=== PATIENT | female | born 1970 | race Caucasian/White ===

== ENCOUNTER → 2018-09-15 | Outpatient (CLI) | payer BC ==
[2015-01-10 10:56] VITALS: BP 121/61
[~2018-09-15] MED LIST: ALPR0.25 PO; AMOX1TAB61 PO; ASPI-482 PO; CYCL-331 PO; HYDR-2155 PO; PROP20TA PO
--- NOTE | 2018-09-16 16:04 | RAD ---
DATE: 09/15/2018 EXAM: DIGITAL SCREEN BILAT W/CAD HISTORY: Routine screening COMPARISON: 12/24/2013 This study was interpreted with the benefit of Computerized Aided Detection (CAD). Breast Density: SCATTERED The breast parenchyma shows scattered fibroglandular densities. Breast parenchyma level B. FINDINGS: No new or enlarging breast densities are seen. Minimal benign type calcifications present. No suspicious microcalcifications have developed. IMPRESSION: There is no mammographic evidence of malignancy in either breast. BI-RADS CATEGORY: 2 BENIGN FINDING(S) RECOMMENDED FOLLOW-UP: 12M 12 MONTH FOLLOW-UP PQRS compliance statement: Patient information was entered into a reminder system with a target due date for the next mammogram. Mammography is a sensitive method for finding small breast cancers, but it does not detect them all and is not a substitute for careful clinical examination. A negative mammogram does not negate a clinically suspicious finding and should not result in delay in biopsying a clinically suspicious abnormality. "Our facility is accredited by the [employer] Mammography Program."
== END | disposition home or self-care (01) ==
LOC: MAMMO 15:26
PROVIDERS: ATTEND Physician Assistant
DX: Z12.31 Encounter for screening mammogram for malignant neoplasm of breast (principal)
CPT/HCPCS: 77067

== ENCOUNTER 2018-09-27 10:24 | Observation (INO) | payer BC ==
[~2018-09-27] VITALS: Ht 167.6 cm; Wt 113.4 kg
[2018-09-27] MEDS ORDERED: IOHEXOL 240 MG/ML 50ML VIAL. PO ONE (11:30)
[2018-09-27] MEDS ORDERED: IOHEXOL 300 MG/ML 50 ML VIAL. IV ONE ×2 (11:30)
[2018-09-27 11:33] LABS: BASO % 1 % (0-3); EOS # 0.1 x10^3/uL (0.0-0.7); EOS % 1 % (0-3); HEMATOCRIT 39.6 % (36.0-47.0); HEMOGLOBIN 13.1 g/dL (12.0-15.5); LYMPH # 2.3 x10^3/uL (1.0-4.8); LYMPH % 44 % (24-48); MEAN CORPUSCULAR HEMOGLOBIN 29 pg (25-35); MEAN CORPUSCULAR HGB CONC 33 g/dL (31-37); MEAN CORPUSCULAR VOLUME 87 fL (79-100); MONO # 0.4 x10^3/uL (0.0-1.1); MONO % 8 % (0-9); NEUT # 2.4 x10^3uL (1.8-7.7); NEUT % 46 % (31-73); PLATELET COUNT 220 x10^3/uL (140-400); RED BLOOD COUNT 4.58 x10^6/uL (3.50-5.40); RED CELL DISTRIBUTION WIDTH 15.1 % (11.5-14.5); WHITE BLOOD COUNT 5.3 x10^3/uL (4.0-11.0)
[2018-09-27 11:49] VITALS: BP 143/76
[2018-09-27 11:58] LABS: ALBUMIN 3.8 g/dL (3.4-5.0); ALBUMIN/GLOBULIN RATIO 1.1 (1.0-1.7); CALCIUM 8.9 mg/dL (8.5-10.1); GFR 59.7; POTASSIUM 3.5 mmol/L (3.5-5.1); TOTAL BILIRUBIN 0.5 mg/dL (0.2-1.0); TOTAL PROTEIN 7.4 g/dL (6.4-8.2)
[2018-09-27] MEDS ORDERED: CYAN10005 PO (12:00)
[2018-09-27] MEDS ORDERED: MONT10TA9 PO (12:00)
[2018-09-27] MEDS ORDERED: CALC-157 PO (12:00)
[2018-09-27] MEDS ORDERED: APIX2.5T PO (12:00)
[2018-09-27] MEDS ORDERED: PROP20TA PO (12:00)
[2018-09-27] MEDS ORDERED: CHLO250T4 PO (12:00)
[2018-09-27] MEDS ORDERED: RIZA10TA PO (12:00)
[2018-09-27] MEDS ORDERED: BIOT800T PO (12:00)
[2018-09-27] MEDS ORDERED: CETI10TA22 PO (12:00)
[2018-09-27] MEDS ORDERED: PANT40TA3 PO (12:00)
[2018-09-27] MEDS ORDERED: NITR0.4T22 SL (12:00)
[2018-09-27] MEDS ORDERED: MULT1TAB52 PO (12:00)
[2018-09-27] MEDS ORDERED: OMEP40CA5 PO (12:00)
[2018-09-27] MEDS ORDERED: BUTALB/APAP/CAFEIN 50/325/40MG TABLET. PO PRN (12:15)
[2018-09-27] MEDS ORDERED: NITROGLYCERIN SUBLINGUAL 0.4 MG BOTTLE OF 25. SL PRN (12:15)
--- NOTE | 2018-09-27 12:16 | EKG ---
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
[2018-09-27 12:44] LABS: BACTERIA,URINE FEW /HPF (0-FEW); BILIRUBIN,URINE NEG (NEG); CLARITY,URINE HAZY; COLOR,URINE YELLOW; GLUCOSE,URINE NEG (NEG); NITRITE,URINE NEG (NEG); SQUAMOUS EPITHELIAL CELL,UR MOD /LPF; UROBILINOGEN,URINE 0.2 mg/dL (0.2 mg/dL); WBC,URINE OCC /HPF (0-4)
--- NOTE | 2018-09-27 13:16 | RAD ---
PQRS Compliance Statement: One or more of the following individualized dose reduction techniques were utilized for this examination: 1. Automated exposure control 2. Adjustment of the mA and/or kV according to patient size 3. Use of iterative reconstruction technique CT angiography chest and abdomen with contrast September 27, 2018 INDICATION: Chest and epigastric pain COMPARISON: None available TECHNIQUE: Multiple axial CT images of the chest and abdomen were obtained after the intravenous administration of 75 cc of Omnipaque 300. Coronal and sagittal reformats are provided. Maximum intensity projection images are provided. FINDINGS: The thyroid gland is normal in appearance. There are no pathologically enlarged axillary, mediastinal or hilar lymph nodes. Heart size is within normal limits. There is no pericardial effusion. Thoracic aorta is normal in course and caliber. There is adequate opacification of pulmonary arterial system. There are no filling defects are suggest acute or chronic pulmonary emboli. There are no suspicious solid noncalcified pulmonary nodules. There are no pleural effusions. No pulmonary vascular congestion or pneumothorax. Lungs are clear. No airspace consolidation. The liver, spleen, bilateral adrenal glands and pancreas are normal in appearance. Gallbladder is present without adjacent inflammation. Abdominal aorta is normal in caliber. Small and large bowel are normal in caliber. There is no evidence for bowel obstruction. There are no pericolonic inflammatory changes. A normal, nondilated appendix is visualized without adjacent inflammatory changes. Postoperative changes are identified from gastric bypass surgery. Kidneys enhance symmetrically. No suspicious renal mass is identified. There is no hydronephrosis or renal calculi. There is a right renal cyst measuring 3.3 cm. IMPRESSION: 1. No evidence for acute pulmonary embolism. 2. No CT evidence for acute abnormality in the abdomen. Electronically signed by: Blossom Carvajal MD (09/27/2018 1:12 PM) [facility]
[2018-09-27] MEDS ORDERED: SUMAtriptan SUCCINATE 50 MG TABLET PO PRN (13:30)
[2018-09-27 15:01] VITALS: BP 135/76
--- NOTE | 2018-09-27 15:17 | RAD ---
Ultrasound venous Doppler INDICATION:Left calf pain, hx of dvt< TECHNIQUE: Grayscale, color Doppler and spectral waveform ultrasound images of the bilateral lower extremities deep veins obtained. COMPARISON: None FINDINGS: The interrogated deep veins are compressible and demonstrate evidence of blood flow with normal respiratory variation and response to augmentation. IMPRESSION: No sonographic evidence of acute DVT of the bilateral lower extremity deep veins. Electronically signed by: Michoacano Marin DO (09/27/2018 3:13 PM) [facility]
[2018-09-27] MEDS ORDERED: PROPRANOLOL 20 MG TABLET. PO SCH (21:00)
[2018-09-27] MEDS ORDERED: APIXABAN 2.5 MG TABLET PO SCH (21:00)
[2018-09-28] MEDS ORDERED: PANTOPRAZOLE 40 MG TABLET. PO SCH ×2 (07:30)
[2018-09-28] MEDS ORDERED: CYANOCOBALAMIN (VITAMIN B-12) 1,000 MCG TABLET. PO SCH (09:00)
[2018-09-28] MEDS ORDERED: CALCIUM CARB/VIT D3 500/200 TABLET PO SCH (09:00)
[2018-09-28] MEDS ORDERED: NON FORMULARY ITEM (Biotin 1,000 MCG) PO SCH (09:00)
[2018-09-28] MEDS ORDERED: MULTIVITAMIN with MINERAL TABLET. PO SCH (09:00)
[2018-09-28] MEDS ORDERED: CETIRIZINE HCL 10 MG TABLET PO SCH (09:00)
[2018-09-28] MEDS ORDERED: MONTELUKAST 10 MG TABLET. PO SCH (09:00)
[2018-09-28] MEDS ORDERED: CHLOROTHIAZIDE 250 MG PO SCH (09:00)
--- NOTE | 2018-10-13 09:46 | DS ---
DATE OF DISCHARGE: 09/27/2018 HOSPITAL COURSE: A 48-year-old female admitted with chest pain. The patient was admitted. The patient was placed in the ICU. Cardiac enzymes were negative. The patient made good progress during the rest of her hospitalization. She demanded to be discharged. She was discharged home for followup with her diesel stationary engineer. While here, a CTA was performed and that was all within normal limits and lower extremity Dopplers done and that was also noted to be within normal limits. IMPRESSION: Chest pain, unknown etiology. DISCHARGE PLAN: See MRAD, decreased activity and return to clinic for followup and follow up with her diesel stationary engineer. FELIX MICHAUD MD DR: BOB/jaret JOB#: [id number] / [id number]
== END 2018-09-27 16:36 | disposition home or self-care (01) ==
LOC: ICU 10:37 → INTOOBSV 10:37
PROVIDERS: ADMIT Family Medicine; ATTEND Family Medicine
DX: R07.89 Other chest pain (principal); E78.1 Pure hyperglyceridemia; R06.02 Shortness of breath; J45.909 Unspecified asthma, uncomplicated; M79.7 Fibromyalgia; M51.36 Other intervertebral disc degeneration, lumbar region; I26.99 Other pulmonary embolism without acute cor pulmonale; I25.2 Old myocardial infarction; Z98.890 Other specified postprocedural states; Z87.891 Personal history of nicotine dependence; Z79.899 Other long term (current) drug therapy; Z88.2 Allergy status to sulfonamides; Z88.8 Allergy status to other drugs, medicaments and biological substances; Z23 Encounter for immunization
CPT/HCPCS: 36415; 71275; 74175; 80053; 81001; 82550; 83880; 84484; 85025; 85379; 87641; 90471; 90756; 93005; 93970; G0378; G0379; Q9966; Q9967; Q2035

== ENCOUNTER 2018-11-06 21:39 | Emergency (ER) | payer BC ==
[~2018-11-06] VITALS: Ht 167.6 cm; Wt 113.4 kg
[~2018-11-06 21:39] MED LIST changes: +APIX2.5T PO; +BIOT800T PO; +CALC-157 PO; +CETI10TA22 PO; +CHLO250T4 PO; +CYAN10005 PO; +MONT10TA9 PO; +MULT1TAB52 PO; +NITR0.4T22 SL; +OMEP40CA5 PO; +PANT40TA3 PO; +RIZA10TA PO
--- NOTE | 2018-11-06 21:41 | ED.ADGEN ---
Past History Past Medical History: Anxiety, Other Past Surgical History: Hysterectomy Alcohol Use: None Drug Use: None Adult General Chief Complaint Chief Complaint ".. I am not feeling right all... fatigued.. nauseated all day...my heart is beating fast... maybe a stomach bug or something... but I check my glucose... and it was high three times.. I..usually have low blood sugar..." HPI HPI Patient is a 48 year old female who presents with above hx and complaints tachycardia, fatigue, malaise, hyperglycemia. Pt. reports she has always been hypoglycemic in past, but today when she checks her glucose all the readings where high. . Pt. denies eating before glucose checks at home. Pt. did undergo go gastric bypass approximate 4 months ago. Blood sugars today were 324 , 289 and 300. Pt does have hx of DVT and chronically low potassiums. Patient denies any change in medications. Patient denies any history immunosuppression. 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 Pt. normally follows with Dr. Colon. Review of Systems Review of Systems Constitutional: Denies fever or chills [] Eyes: Denies change in visual acuity, redness, or eye pain [] HENT: Denies nasal congestion or sore throat [] Respiratory: Denies cough or shortness of breath [] Cardiovascular: No additional information not addressed in HPI [] GI: Denies abdominal pain, , vomiting, bloody stools or diarrhea [] Hx nausea : Denies dysuria or hematuria [] Musculoskeletal: Denies back pain or joint pain [] Integument: Denies rash or skin lesions [] Neurologic: Denies headache, focal weakness or sensory changes [] Endocrine: Denies polyuria or polydipsia [] All other systems were reviewed and found to be within normal limits, except as documented in this note. Family History Family History Noncontributory to presentation Current Medications Current Medications Current Medications Medications (Trade) Dose Ordered Sig/Gustavo Start Time Stop Time Status Last Admin Dose Admin Potassium Chloride (KCl Oral Soln) 20 meq STK-MED ONCE 11/06/18 23:46 11/06/18 23:48 DC Sodium Chloride 1,000 ml @ 1,000 mls/hr Q1H 11/06/18 21:57 11/06/18 22:56 DC 11/06/18 22:44 1,000 MLS/HR See nursing for home meds Allergies Allergies Allergies Coded Allergies Type Severity Reaction Last Updated Verified Sulfa (Sulfonamide Antibiotics) Allergy Intermediate 01/10/15 Yes gabapentin Allergy Unknown 01/10/15 No magnesium Allergy Unknown 01/10/15 No pregabalin Allergy Unknown 01/10/15 No Physical Exam Physical Exam Constitutional: Mild distress, non-toxic appearance. [] HENT: Normocephalic, atraumatic, bilateral external ears normal, oropharynx dry , no oral exudates, nose normal. [] Eyes: PERRLA, EOMI, conjunctiva normal, no discharge. [] Neck: Normal range of motion, no tenderness, supple, no stridor. [] Cardiovascular: Bradycardia Heart rate regular rhythm, no murmur [] Lungs & Thorax: Bilateral breath sounds clear to auscultation [] Abdomen: Bowel sounds normal, soft, no tenderness, no masses, no pulsatile masses. [Old surgery scars . Skin: Warm, dry, no erythema, no rash. [] Back: No tenderness, no CVA tenderness. [] Extremities: No tenderness, no cyanosis, no clubbing, ROM intact, no edema. [] Neurologic: Alert and oriented X 3, normal motor function, normal sensory function, no focal deficits noted. [] Psychologic: Affect anxious, judgement normal, mood normal. [] Current Patient Data Vital Signs Vital Signs Date Time Temp Pulse Resp B/P (MAP) Pulse Ox O2 Delivery O2 Flow Rate FiO2 11/06/18 21:39 97.0 67 18 97 Room Air Lab Results Laboratory Tests Test 11/06/18 21:59 11/06/18 22:15 11/06/18 22:35 11/06/18 23:49 Glucose (Fingerstick) 142 mg/dL (70-99) H 76 mg/dL (70-99) Urine Collection Type Unknown Urine Color Yellow Urine Clarity Clear Urine pH 5.5 Urine Specific [place] 1.020 Urine Protein Neg (NEG-TRACE) Urine Glucose (UA) 250 mg/dL (NEG) Urine Ketones (Stick) Trace mg/dL (NEG) Urine Blood Trace (NEG) Urine Nitrite Neg (NEG) Urine Bilirubin Neg (NEG) Urine Urobilinogen Dipstick 0.2 mg/dL (0.2 mg/dL) Urine Leukocyte Esterase Neg (NEG) Urine RBC 0 /HPF (0-2) Urine WBC 1-4 /HPF (0-4) Urine Squamous Epithelial Cells Mod /LPF Urine Bacteria 0 /HPF (0-FEW) Urine Opiates Screen Neg (NEG) Urine Methadone Screen Neg (NEG) Urine Barbiturates Neg (NEG) Urine Phencyclidine Screen Neg (NEG) Urine Amphetamine/Methamphetamine Neg (NEG) Urine Benzodiazepines Screen Neg (NEG) Urine Cocaine Screen Neg (NEG) Urine Cannabinoids Screen Neg (NEG) Urine Ethyl Alcohol Neg (NEG) White Blood Count 7.0 x10^3/uL (4.0-11.0) Red Blood Count 4.54 x10^6/uL (3.50-5.40) Hemoglobin 13.0 g/dL (12.0-15.5) Hematocrit 38.6 % (36.0-47.0) Mean Corpuscular Volume 85 fL (79-100) Mean Corpuscular Hemoglobin 29 pg (25-35) Mean Corpuscular Hemoglobin Concent 34 g/dL (31-37) Red Cell Distribution Width 14.1 % (11.5-14.5) Platelet Count 202 x10^3/uL (140-400) Neutrophils (%) (Auto) 46 % (31-73) Lymphocytes (%) (Auto) 45 % (24-48) Monocytes (%) (Auto) 8 % (0-9) Eosinophils (%) (Auto) 1 % (0-3) Basophils (%) (Auto) 0 % (0-3) Neutrophils # (Auto) 3.2 x10^3uL (1.8-7.7) Lymphocytes # (Auto) 3.2 x10^3/uL (1.0-4.8) Monocytes # (Auto) 0.5 x10^3/uL (0.0-1.1) Eosinophils # (Auto) 0.1 x10^3/uL (0.0-0.7) Basophils # (Auto) 0.0 x10^3/uL (0.0-0.2) Prothrombin Time 10.4 SEC (9.4-11.4) Prothrombin Time INR 1.0 (0.9-1.1) PTT 28 SEC (23-33) D-Dimer (Saira) < 0.19 mg/L (0.00-0.50) Maternal Serum HCG Beta Subunit 2 mIU/mL (0-6) Sodium Level 140 mmol/L (136-145) Potassium Level 3.0 mmol/L (3.5-5.1) L Chloride Level 103 mmol/L (98-107) Carbon Dioxide Level 27 mmol/L (21-32) Anion Gap 10 (6-14) Blood Urea Nitrogen 17 mg/dL (7-20) Creatinine 1.0 mg/dL (0.6-1.0) Estimated GFR (Cockcroft-Gault) 59.7 Glucose Level 118 mg/dL (70-99) H Calcium Level 8.7 mg/dL (8.5-10.1) Magnesium Level 2.2 mg/dL (1.8-2.4) Total Bilirubin 0.3 mg/dL (0.2-1.0) Direct Bilirubin 0.1 mg/dL (0.0-0.2) Aspartate Amino Transferase (AST) 16 U/L (15-37) Alanine Aminotransferase (ALT) 28 U/L (14-59) Alkaline Phosphatase 65 U/L (46-116) Creatine Kinase 128 U/L (26-192) Troponin I Quantitative < 0.017 ng/mL (0-0.055) HM-Vrz-T-Type Natriuretic Peptide 49 pg/mL (0-124) Total Protein 7.4 g/dL (6.4-8.2) Albumin 3.7 g/dL (3.4-5.0) Lipase 129 U/L (73-393) EKG EKG My interpretation EKG shows a sinus rhythm at 59 bpm. There is some nonspecific left axis changes.. No findings acute STEMI of contralateral changes[] Radiology/Procedures Radiology/Procedures My interpretation of chest x-ray shows no acute cardiopulmonary findings. No free air under the diaphragm.[] Course & Med Decision Making Course & Med Decision Making Pertinent Labs and Imaging studies reviewed. (See chart for details) Pt. to document glucose readings 4 x day, before meals and bedtime. Keep a log and show this to Dr. Colon. Pt. to increase potassium in diet. Push fluids. Must followup & return if any concerns. [] Final Impression Final Impression 1. Malaise and fatigue- viral syndrome 2. Recent - Gastric by Pass - [] 3. Hyperglycemia glucose 148 4. Hypokalemia 3.0 5. Dehydration Dragon Disclaimer Dragon Disclaimer This electronic medical record was generated, in whole or in part, using a voice recognition dictation system. Dragon Disclaimer This chart was dictated in whole or in part using Voice Recognition software in a busy, high-work load, and often noisy Emergency Department environment. It may contain unintended and wholly unrecognized errors or omissions. Discharge Summary Visit Information Final Diagnosis Problems Medical Problems: (1) Elevated glucose Status: Acute (2) Hypokalemia Status: Acute (3) Viral syndrome Status: Acute Brief Hospital Course Allergies Allergies Coded Allergies Type Severity Reaction Last Updated Verified Sulfa (Sulfonamide Antibiotics) Allergy Intermediate 01/10/15 Yes gabapentin Allergy Unknown 01/10/15 No magnesium Allergy Unknown 01/10/15 No pregabalin Allergy Unknown 01/10/15 No Vital Signs Vital Signs Date Time Temp Pulse Resp B/P (MAP) Pulse Ox O2 Delivery O2 Flow Rate FiO2 11/06/18 21:39 97.0 67 18 97 Room Air Lab Results Laboratory Tests Test 11/06/18 21:59 11/06/18 22:15 11/06/18 22:35 11/06/18 23:49 Glucose (Fingerstick) 142 mg/dL (70-99) 76 mg/dL (70-99) Urine Collection Type Unknown Urine Color Yellow Urine Clarity Clear Urine pH 5.5 Urine Specific [place] 1.020 Urine Protein Neg (NEG-TRACE) Urine Glucose (UA) 250 mg/dL (NEG) Urine Ketones (Stick) Trace mg/dL (NEG) Urine Blood Trace (NEG) Urine Nitrite Neg (NEG) Urine Bilirubin Neg (NEG) Urine Urobilinogen Dipstick 0.2 mg/dL (0.2 mg/dL) Urine Leukocyte Esterase Neg (NEG) Urine RBC 0 /HPF (0-2) Urine WBC 1-4 /HPF (0-4) Urine Squamous Epithelial Cells Mod /LPF Urine Bacteria 0 /HPF (0-FEW) Urine Opiates Screen Neg (NEG) Urine Methadone Screen Neg (NEG) Urine Barbiturates Neg (NEG) Urine Phencyclidine Screen Neg (NEG) Urine Amphetamine/Methamphetamine Neg (NEG) Urine Benzodiazepines Screen Neg (NEG) Urine Cocaine Screen Neg (NEG) Urine Cannabinoids Screen Neg (NEG) Urine Ethyl Alcohol Neg (NEG) White Blood Count 7.0 x10^3/uL (4.0-11.0) Red Blood Count 4.54 x10^6/uL (3.50-5.40) Hemoglobin 13.0 g/dL (12.0-15.5) Hematocrit 38.6 % (36.0-47.0) Mean Corpuscular Volume 85 fL (79-100) Mean Corpuscular Hemoglobin 29 pg (25-35) Mean Corpuscular Hemoglobin Concent 34 g/dL (31-37) Red Cell Distribution Width 14.1 % (11.5-14.5) Platelet Count 202 x10^3/uL (140-400) Neutrophils (%) (Auto) 46 % (31-73) Lymphocytes (%) (Auto) 45 % (24-48) Monocytes (%) (Auto) 8 % (0-9) Eosinophils (%) (Auto) 1 % (0-3) Basophils (%) (Auto) 0 % (0-3) Neutrophils # (Auto) 3.2 x10^3uL (1.8-7.7) Lymphocytes # (Auto) 3.2 x10^3/uL (1.0-4.8) Monocytes # (Auto) 0.5 x10^3/uL (0.0-1.1) Eosinophils # (Auto) 0.1 x10^3/uL (0.0-0.7) Basophils # (Auto) 0.0 x10^3/uL (0.0-0.2) Prothrombin Time 10.4 SEC (9.4-11.4) Prothromb Time International Ratio 1.0 (0.9-1.1) Activated Partial Thromboplast Time 28 SEC (23-33) D-Dimer (Saira) < 0.19 mg/L (0.00-0.50) Maternal Serum HCG Beta Subunit 2 mIU/mL (0-6) Sodium Level 140 mmol/L (136-145) Potassium Level 3.0 mmol/L (3.5-5.1) Chloride Level 103 mmol/L (98-107) Carbon Dioxide Level 27 mmol/L (21-32) Anion Gap 10 (6-14) Blood Urea Nitrogen 17 mg/dL (7-20) Creatinine 1.0 mg/dL (0.6-1.0) Estimated GFR (Cockcroft-Gault) 59.7 Glucose Level 118 mg/dL (70-99) Calcium Level 8.7 mg/dL (8.5-10.1) Magnesium Level 2.2 mg/dL (1.8-2.4) Total Bilirubin 0.3 mg/dL (0.2-1.0) Direct Bilirubin 0.1 mg/dL (0.0-0.2) Aspartate Amino Transf (AST/SGOT) 16 U/L (15-37) Alanine Aminotransferase (ALT/SGPT) 28 U/L (14-59) Alkaline Phosphatase 65 U/L (46-116) Creatine Kinase 128 U/L (26-192) Troponin I Quantitative < 0.017 ng/mL (0-0.055) TH-Cat-S-Type Natriuretic Peptide 49 pg/mL (0-124) Total Protein 7.4 g/dL (6.4-8.2) Albumin 3.7 g/dL (3.4-5.0) Lipase 129 U/L (73-393) Brief Hospital Course Ms. Patel is a 48 old female who presented with hx malaise and elevated glucose levels. Discharge Information Condition at Discharge: Improved, Stable Disposition/Orders: D/C to Home Dischare Medications Current Medications Sodium Chloride 1,000 ml @ 1,000 mls/hr Q1H IV Last administered on 11/06/18at 22:44; Admin Dose 1,000 MLS/HR; Start 11/06/18 at 21:57; Stop 11/06/18 at 22:56 ; Status DC Potassium Chloride (KCl Oral Soln) 40 meq 1X ONCE PO Last administered on 11/06at 23:53; Admin Dose 40 MEQ; Start 11/06/18 at 23:55; Stop 11/06/18 at 23:56 ; Status DC Potassium Chloride (KCl Oral Soln) 20 meq STK-MED ONCE .ROUTE ; Start 11/06/18 at 23:46; Stop 11/06/18 at 23:48; Status DC Active Scripts Active Reported Eliquis (Apixaban) 2.5 Mg Tablet 2.5 Mg PO BID Omeprazole 40 Mg Capsule.dr 1 Cap PO DAILY Zyrtec (Cetirizine Hcl) 10 Mg Tablet 1 Tab PO DAILY Montelukast Sodium Tablet (Montelukast Sodium) 10 Mg Tablet 1 Tab PO DAILY Multivitamins (Multivitamin) 1 Each Tablet 1 Tab PO DAILY Calcium 500 + Vit D 200 Tablet (Calcium Carbonate/Vitamin D3) 1 Each Tablet 1 Each PO DAILY Vitamin B-12 (Cyanocobalamin (Vitamin B-12)) 1,000 Mcg Tablet 1 Tab PO DAILY Biotin 800 Mcg Tablet 1,000 Mcg PO DAILY Protonix (Pantoprazole Sodium) 40 Mg Tablet.dr 1 Tab PO DAILY Chlorothiazide 250 Mg Tablet 250 Mg PO DAILY Propranolol Hcl 20 Mg Tablet 1 Tab PO BID Maxalt (Rizatriptan Benzoate) 10 Mg Tablet 1 Tab PO PRN DAILY PRN NITROGLYCERIN SubLingual (Nitroglycerin) 0.4 Mg Tab.subl 1 Tab SL PRN Q5MIN PRN MUMTAZ DORAN MD Nov 06, 2018 21:41
[2018-11-06] MEDS ORDERED: IV NORMAL SALINE 1,000ML 1,000 ML IV SCH (21:57)
[2018-11-06 22:59] LABS: BASO % 0 % (0-3); EOS # 0.1 x10^3/uL (0.0-0.7); EOS % 1 % (0-3); HEMATOCRIT 38.6 % (36.0-47.0); LYMPH # 3.2 x10^3/uL (1.0-4.8); LYMPH % 45 % (24-48); MEAN CORPUSCULAR HEMOGLOBIN 29 pg (25-35); MEAN CORPUSCULAR HGB CONC 34 g/dL (31-37); MEAN CORPUSCULAR VOLUME 85 fL (79-100); MONO # 0.5 x10^3/uL (0.0-1.1); MONO % 8 % (0-9); NEUT # 3.2 x10^3uL (1.8-7.7); NEUT % 46 % (31-73); PLATELET COUNT 202 x10^3/uL (140-400); RED BLOOD COUNT 4.54 x10^6/uL (3.50-5.40); RED CELL DISTRIBUTION WIDTH 14.1 % (11.5-14.5)
--- NOTE | 2018-11-06 23:02 | EKG ---
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
[2018-11-06 23:08] LABS: BARBITURATES NEG (NEG); BENZODIAZEPINES NEG (NEG); CANNABINOIDS NEG (NEG); COCAINE NEG (NEG); METHADONE NEG (NEG); OPIATES NEG (NEG); PHENCYCLIDINE NEG (NEG)
[2018-11-06 23:18] LABS: BILIRUBIN,URINE NEG (NEG); CLARITY,URINE CLEAR; COLOR,URINE YELLOW; GLUCOSE,URINE 250 mg/dL (NEG); NITRITE,URINE NEG (NEG); RBC,URINE 0 /HPF (0-2); UROBILINOGEN,URINE 0.2 mg/dL (0.2 mg/dL)
[2018-11-06 23:19] LABS: BACTERIA,URINE 0 /HPF (0-FEW); SQUAMOUS EPITHELIAL CELL,UR MOD /LPF
[2018-11-06 23:21] LABS: AMPHETAMINE/METHAMPHETAMINE NEG (NEG)
[2018-11-06 23:21] LABS: ALBUMIN 3.7 g/dL (3.4-5.0); CALCIUM 8.7 mg/dL (8.5-10.1); DIRECT BILIRUBIN 0.1 mg/dL (0.0-0.2); GFR 59.7; MAGNESIUM 2.2 mg/dL (1.8-2.4); TOTAL BILIRUBIN 0.3 mg/dL (0.2-1.0); TOTAL PROTEIN 7.4 g/dL (6.4-8.2)
[2018-11-06 23:40] VITALS: BP 119/71
[2018-11-06] MEDS ORDERED: POTASSIUM CHLORIDE 20 MEQ/15 ML ORAL LIQUID. ONE (23:46)
[2018-11-06] MEDS ORDERED: POTASSIUM CHLORIDE 20 MEQ/15 ML ORAL LIQUID. PO ONE (23:55)
--- NOTE | 2018-11-07 01:30 | RAD ---
Chest, PA and Lateral: Technique: PA and lateral views of the chest were obtained. History: Palpitations. Comparison: 03/21/2015. Findings: The heart and pulmonary vasculature appear within normal limits. The lungs are clear. The pleural margins are clear. Impression: No acute chest process is seen. Electronically signed by: Binu Gamino MD (11/07/2018 1:26 AM) [facility]
== END 2018-11-07 00:10 | disposition home or self-care (01) ==
LOC: ER 21:39
DX: B34.9 Viral infection, unspecified (principal); R73.9 Hyperglycemia, unspecified; E87.6 Hypokalemia; E86.0 Dehydration; F41.9 Anxiety disorder, unspecified; Z98.84 Bariatric surgery status; Z88.2 Allergy status to sulfonamides; Z88.8 Allergy status to other drugs, medicaments and biological substances
CPT/HCPCS: 36415; 71046; 80048; 80076; 80307; 81001; 82550; 82947; 83690; 83735; 83880; 84443; 84484; 84702; 85025; 85379; 85610; 85730; 93005; 96360; 99284-25; J7030

== ENCOUNTER 2018-11-19 18:34 | Emergency (ER) | payer BC, OTHER ==
[~2018-11-19] VITALS: Ht 167.6 cm; Wt 104.3 kg
[~2018-11-19 18:34] MED LIST changes: +CYAN-25 PO; -CYAN10005 PO; +MONT10TA80 PO; -MONT10TA9 PO
[2018-11-19 18:55] VITALS: BP 136/93
--- NOTE | 2018-11-19 19:08 | PHYS DOC ---
Past History Past Medical History: Anxiety, Arrhythmia, TIA, Other Past Surgical History: Hysterectomy Alcohol Use: None Drug Use: None Adult General Chief Complaint Chief Complaint: MECHANICAL FALL HPI HPI 48-year-old female presents with left shoulder pain and left hip pain. The patient was walking outside and slipped on the ice. She landed with an outstretched arm on the left side. 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 She has been able to walk. She is not taking any medications because she cannot take NSAIDs due to stomach ulcers. She denies fever or chills. She denies hitting her head or loss of consciousness. Review of Systems Review of Systems Constitutional: Denies fever or chills [] Eyes: Denies change in visual acuity, redness, or eye pain [] HENT: Denies nasal congestion or sore throat [] Respiratory: Denies cough or shortness of breath [] Cardiovascular: No additional information not addressed in HPI [] GI: Denies abdominal pain, nausea, vomiting, bloody stools or diarrhea [] : Denies dysuria or hematuria [] Musculoskeletal: Left shoulder and left hip pain[] Integument: Denies rash or skin lesions [] Neurologic: Denies headache, focal weakness or sensory changes [] Endocrine: Denies polyuria or polydipsia [] All other systems were reviewed and found to be within normal limits, except as documented in this note. Current Medications Current Medications Current Medications Medications (Trade) Dose Ordered Sig/Gustavo Start Time Stop Time Status Last Admin Dose Admin Acetaminophen/ Hydrocodone Bitart (Lortab 7.5/325) 1 tab 1X ONCE 11/19/18 19:15 11/19/18 19:16 UNV Allergies Allergies Allergies Coded Allergies Type Severity Reaction Last Updated Verified Sulfa (Sulfonamide Antibiotics) Allergy Intermediate 01/10/15 Yes gabapentin Allergy Unknown 01/10/15 No magnesium Allergy Unknown 01/10/15 No pregabalin Allergy Unknown 01/10/15 No Physical Exam Physical Exam Constitutional: Well developed, well nourished, no acute distress, non-toxic appearance. [] HENT: Normocephalic, atraumatic, bilateral external ears normal, oropharynx moist, no oral exudates, nose normal. [] Eyes: PERRLA, EOMI, conjunctiva normal, no discharge. [] Neck: Normal range of motion, no tenderness, supple, no stridor. [] Cardiovascular:Heart rate regular rhythm, no murmur [] Lungs & Thorax: Bilateral breath sounds clear to auscultation [] Abdomen: Bowel sounds normal, soft, no tenderness, no masses, no pulsatile masses. [] Skin: Warm, dry, no erythema, no rash. [] Back: No tenderness, no CVA tenderness. [] Extremities: There was to palpation of the anterior left shoulder, no obvious deformity. Tenderness to palpation of the lateral left hip. No obvious deformity.[] Neurologic: Alert and oriented X 3, normal motor function, normal sensory function, no focal deficits noted. [] Psychologic: Affect normal, judgement normal, mood normal. [] EKG EKG [] Radiology/Procedures Radiology/Procedures [] Impressions: Preliminary Interpretation: The patient's shoulder and hip x-rays do not show an acute fracture or dislocation. Course & Med Decision Making Course & Med Decision Making Pertinent Labs and Imaging studies reviewed. (See chart for details) The patient's x-rays are negative for dislocation or fracture. I believe she is just a bit bruised. I will discharge her with a short course of Mcclelland 5/325. She was given one Mcclelland in the ED. She is stable for discharge at this time. [] Dragon Disclaimer Dragon Disclaimer This electronic medical record was generated, in whole or in part, using a voice recognition dictation system. Departure Departure: Impression: Primary Impression: Fall due to slipping on ice or snow Additional Impressions: Left shoulder pain Left hip pain Disposition: 01 HOME, SELF-CARE Condition: STABLE Referrals: FELIX MICHAUD MD (PCP) Patient Instructions: Contusion, [id number] Scripts Hydrocodone Bit/Acetaminophen (NORCO 5-325 TABLET) 1 Each Tablet 1 TAB PO PRN Q6HRS PRN for PAIN, #10 TAB 0 Refills Prov: FARIDEH GUILLEN DO 11/19/18 Problem Qualifiers Primary Impression: Fall due to slipping on ice or snow Encounter type: initial encounter Qualified Codes: W00.9XXA - Unspecified fall due to ice and snow, initial encounter Additional Impressions: Left shoulder pain Chronicity: acute Qualified Codes: M25.512 - Pain in left shoulder FARIDEH GUILLEN DO Nov 19, 2018 19:08
[2018-11-19] MEDS ORDERED: HYDROcodone/APAP 7.5/325MG 1 TAB TABLET PO ONE (19:15)
[2018-11-19] MEDS ORDERED: HYDR-3165 PO (19:48)
--- NOTE | 2018-11-20 00:17 | RAD ---
Left shoulder 3 views. HISTORY: Injury tonight from fall, pain 3 views were taken left shoulder. There is a small focus of calcification adjacent to the humeral head from mild calcific tendinitis. There is no fracture or dislocation or acute osseous abnormality. IMPRESSION: 1. No acute fracture noted in the left shoulder. 2. No dislocation. 3. Mild calcific tendinitis. Electronically signed by: Malcolm Jones MD (11/20/2018 12:13 AM) [facility]
--- NOTE | 2018-11-20 00:22 | RAD ---
Left hip 2 views with one view pelvis. HISTORY: Fall with injury, pain left hip AP and lateral views of the left hip show no acute fracture or acute osseous abnormality. Single view was taken of the pelvis. A pelvic fracture is not evident. IMPRESSION: 1. No fracture noted in the pelvis or left hip. Electronically signed by: Malcolm Jones MD (11/20/2018 12:17 AM) [facility]
== END 2018-11-19 19:50 | disposition home or self-care (01) ==
LOC: ER 18:34
DX: M25.512 Pain in left shoulder (principal); M25.552 Pain in left hip; G89.11 Acute pain due to trauma; Q79.6 Ehlers-Danlos syndromes; F41.9 Anxiety disorder, unspecified; Z86.73 Personal history of transient ischemic attack (TIA), and cerebral infarction without residual deficits; Z88.2 Allergy status to sulfonamides; Z88.8 Allergy status to other drugs, medicaments and biological substances; W00.0XXA Fall on same level due to ice and snow, initial encounter; Y93.01 Activity, walking, marching and hiking; Y92.89 Other specified places as the place of occurrence of the external cause; Y99.8 Other external cause status
CPT/HCPCS: 73030; 73502; 99283

== ENCOUNTER 2019-08-27 11:45 | Observation (INO) | payer BC, OTHER ==
[~2019-08-27] VITALS: Ht 167.6 cm; Wt 98.6 kg
[~2019-08-27 11:45] MED LIST changes: +HYDR-3165 PO; +OMEP40CA45 PO; -OMEP40CA5 PO
[2019-08-27] MEDS ORDERED: MORPHINE SULFATE 2 MG/ML DISP.SYRIN. IV/SQ PRN (12:00)
[2019-08-27] MEDS ORDERED: IV NORMAL SALINE 1,000ML 1,000 ML IV SCH (12:00)
--- NOTE | 2019-08-27 12:06 | PHYS DOC ---
Past History Past Medical History: Anxiety, Arrhythmia, CAD, DVT, Hypertension, TIA, Other Additional Past Medical Histor: PE, Hypergycemia, Margaret-Danlos syndrome Past Surgical History: Hysterectomy, Other Additional Past Surgical Histo: Gastric Bypass, Smoking: Cigar Additional Smoking Information: cigar monthly Alcohol Use: Rarely Drug Use: None Adult General Chief Complaint Chief Complaint: CHEST PAIN HPI HPI Patient is a 49-year-old female presents complaining of chest pain that radiates into her right arm. No worse with exertion. There is respirophasic component to it. Pain is moderate. She was sent here from her primary care physician's office due to an abnormal EKG. Patient does have history of both cardiac disease as well as pulmonary embolism. She has been on eliquis. She reports taking a trip to [place] approximately 3 weeks ago by car. No out of the country travel. 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 Last cardiac evaluation was approximately a year ago.[] Review of Systems Review of Systems Constitutional: Denies fever or chills [] Eyes: Denies change in visual acuity, redness, or eye pain [] HENT: Denies nasal congestion or sore throat [] Respiratory: Denies cough or shortness of breath [] Cardiovascular: No additional information not addressed in HPI [] GI: Denies abdominal pain, nausea, vomiting, bloody stools or diarrhea [] : Denies dysuria or hematuria [] Musculoskeletal: Denies back pain or joint pain [] Integument: Denies rash or skin lesions [] Neurologic: Denies headache, focal weakness or sensory changes [] Endocrine: Denies polyuria or polydipsia [] All other systems were reviewed and found to be within normal limits, except as documented in this note. Allergies Allergies Allergies Coded Allergies Type Severity Reaction Last Updated Verified Sulfa (Sulfonamide Antibiotics) Allergy Intermediate 08/27/19 Yes gabapentin Allergy Unknown 08/27/19 No magnesium Allergy Unknown 08/27/19 No pregabalin Allergy Unknown 08/27/19 No Physical Exam Physical Exam Constitutional: Well developed, well nourished, no acute distress, non-toxic appearance. [] HENT: Normocephalic, atraumatic, bilateral external ears normal, oropharynx moist, no oral exudates, nose normal. [] Eyes: PERRLA, EOMI, conjunctiva normal, no discharge. [] Neck: Normal range of motion, no tenderness, supple, no stridor. [] Cardiovascular:Heart rate regular rhythm, no murmur [] Lungs & Thorax: Bilateral breath sounds clear to auscultation [] Abdomen: Bowel sounds normal, soft, no tenderness, no masses, no pulsatile masses. [] Skin: Warm, dry, no erythema, no rash. [] Back: No tenderness, no CVA tenderness. [] Extremities: No tenderness, no cyanosis, no clubbing, ROM intact, no edema. [] Neurologic: Alert and oriented X 3, normal motor function, normal sensory function, no focal deficits noted. [] Psychologic: Affect normal, judgement normal, mood normal. [] Current Patient Data Vital Signs Vital Signs Date Time Temp Pulse Resp B/P (MAP) Pulse Ox O2 Delivery O2 Flow Rate FiO2 08/27/19 11:54 98.1 60 18 100 Room Air EKG EKG EKG shows a sinus rhythm at 59 bpm, normal axis, QTC of 414 ms, no ST elevation. Interpreted by me at 1155[] Radiology/Procedures Radiology/Procedures PROCEDURE: PORTABLE CHEST 1V Examination: PORTABLE CHEST 1V History: Chest pain Comparison/Correlation: None Findings: Upright portable frontal view chest was obtained. Heart size and pulmonary vasculature are normal. No pneumothorax, infiltrate or pleural effusion. Bony structures are unremarkable. Impression: No active disease.[] Course & Med Decision Making Course & Med Decision Making Pertinent Labs and Imaging studies reviewed. (See chart for details) ED course: Patient arrived, was placed in bed, and tolerated exam well. She was given a dose of aspirin due to concern for possible cardiac etiology. After the return of the laboratory and imaging studies, these were discussed with the patient voiced understanding. Consultation was made with her primary care physician who graciously admitted her. She was admitted in improved condition with all questions answered. Medical decision makin-year-old female with history of coronary disease. She is being admitted for further evaluation. There is no evidence of pulmonary embolism. No evidence of pneumonia, pneumothorax, dissecting thoracic aneurysm, nor esophageal rupture. Her heart score is 4. She is being admitted for further evaluation and treatment.[] Dragon Disclaimer Dragon Disclaimer This electronic medical record was generated, in whole or in part, using a voice recognition dictation system. Departure Departure: Impression: Primary Impression: Chest pain Disposition: ADMITTED INPATIENT Admitting Physician: Elias Colon Condition: IMPROVED Referrals: ELIAS COLON MD (PCP) HEART Score for Chest Pain PTs The HEART Score for CP Pts HEART Score for Chest Pain: HEART Score for Chest Pain Response (Comments) Value History Slighlty/Non-Suspicious 0 ECG Nonspecific Repolarizatio 1 Age >45 - < 65 1 Risk Factors >3 Risk Factors or Hx CAD 2 Troponin < Normal Limit 0 Total 4 Risk Factors: Risk Factors: DM, Current or recent (<one month) smoker, HTN, HLP, family history of CAD, obesity. Risk Scores: Score 0 - 3: 2.5% MACE over next 6 weeks - Discharge Home Score 4 - 6: 20.3% MACE over next 6 weeks - Admit for Clinical Observation Score 7 - 10: 72.7% MACE over next 6 weeks - Early Invasive Strategies Problem Qualifiers Primary Impression: Chest pain Chest pain type: unspecified Qualified Codes: R07.9 - Chest pain, unspecified AMMY MARINELLI DO Aug 27, 2019 12:06
[2019-08-27] MEDS ORDERED: ASPIRIN 81 MG TAB.CHEW ONE (12:07)
[2019-08-27] MEDS ORDERED: ASPIRIN 81 MG TAB.CHEW PO ONE (12:15)
[2019-08-27 12:22] LABS: BASO # 0.1 x10^3/uL (0.0-0.2); BASO % 1 % (0-3); EOS # 0.1 x10^3/uL (0.0-0.7); EOS % 1 % (0-3); HEMATOCRIT 38.3 % (36.0-47.0); HEMOGLOBIN 12.6 g/dL (12.0-15.5); LYMPH # 3.1 x10^3/uL (1.0-4.8); LYMPH % 42 % (24-48); MEAN CORPUSCULAR HEMOGLOBIN 29 pg (25-35); MEAN CORPUSCULAR HGB CONC 33 g/dL (31-37); MEAN CORPUSCULAR VOLUME 89 fL (79-100); MONO # 0.5 x10^3/uL (0.0-1.1); MONO % 7 % (0-9); NEUT # 3.7 x10^3uL (1.8-7.7); NEUT % 50 % (31-73); PLATELET COUNT 215 x10^3/uL (140-400); RED BLOOD COUNT 4.31 x10^6/uL (3.50-5.40); RED CELL DISTRIBUTION WIDTH 13.6 % (11.5-14.5); WHITE BLOOD COUNT 7.3 x10^3/uL (4.0-11.0)
--- NOTE | 2019-08-27 12:23 | RAD ---
Examination: PORTABLE CHEST 1V History: Chest pain Comparison/Correlation: None Findings: Upright portable frontal view chest was obtained. Heart size and pulmonary vasculature are normal. No pneumothorax, infiltrate or pleural effusion. Bony structures are unremarkable. Impression: No active disease. Electronically signed by: Denver Cespedes MD (08/27/2019 12:20 PM) [facility]
[2019-08-27 12:30] LABS: ALBUMIN 3.8 g/dL (3.4-5.0); ALBUMIN/GLOBULIN RATIO 1.2 (1.0-1.7); CALCIUM 8.7 mg/dL (8.5-10.1); GFR 59.4; MAGNESIUM 2.2 mg/dL (1.8-2.4); POTASSIUM 3.9 mmol/L (3.5-5.1); TOTAL BILIRUBIN 0.3 mg/dL (0.2-1.0); TOTAL PROTEIN 7.1 g/dL (6.4-8.2)
[2019-08-27 12:49] LABS: BARBITURATES NEG (NEG); BENZODIAZEPINES NEG (NEG); CANNABINOIDS NEG (NEG); COCAINE NEG (NEG); METHADONE NEG (NEG); OPIATES NEG (NEG); PHENCYCLIDINE NEG (NEG)
[2019-08-27 12:51] LABS: AMPHETAMINE/METHAMPHETAMINE NEG (NEG); BACTERIA,URINE 0 /HPF (0-FEW); BILIRUBIN,URINE NEG (NEG); CLARITY,URINE HAZY; COLOR,URINE YELLOW; GLUCOSE,URINE NEG (NEG); NITRITE,URINE NEG (NEG); SQUAMOUS EPITHELIAL CELL,UR FEW /LPF; UROBILINOGEN,URINE 0.2 mg/dL (0.2 mg/dL)
[2019-08-27] MEDS ORDERED: ONDANSETRON PF 4 MG/2 ML VIAL. IV PRN (13:30)
[2019-08-27] MEDS ORDERED: ACETAMINOPHEN 325 MG TABLET PO PRN (13:30)
[2019-08-27 14:48] VITALS: BP 127/81
--- NOTE | 2019-08-27 15:03 | NUR ---
NURSING NOTE PT ADMIT FROM ED TO ROOM 119 WITH DX OF CHEST PAIN OBSERVATION, HTN, HLD, HX OF WY. PT STATES IT STARTED THIS AM WITH PAIN IN HER LEFT FOREARM AND INTO HER HAND, THEN RADIATED UP HER NECK AND JAW, THEN SHE BEGAN HAVING CHEST PAIN AND PRESSURE. PT HAS HISTORY OF WY, TIA, HTN, HLD, GASTRIC BYPASS, PE, DVT, AND OTHERS. PT SETTLED IN ROOM. NO COMPLICATIONS. CLOTILDE MORENO.
[2019-08-27] MEDS ORDERED: ESOM40CA PO (15:10)
[2019-08-27] MEDS ORDERED: APIX5TAB3 PO (15:10)
[2019-08-27] MEDS ORDERED: OMEG1CAP38 PO (15:10)
[2019-08-27] MEDS ORDERED: MONT10TA10 PO (15:10)
[2019-08-27] MEDS ORDERED: TRIA1TAB3 PO (15:10)
[2019-08-27] MEDS ORDERED: PROP10TA PO (15:12)
--- NOTE | 2019-08-27 15:17 | NUR ---
NURSING NOTE CONSULT CONSULT CARDIOLOGY CALLED TO [facility] FOR CHEST PAIN WITH HX OF AFIB AND GA. CLOTILDE MORENO.
[2019-08-27] MEDS: MORPHINE SULFATE 2 MG/ML DISP.SYRIN. IV PRN ×2 (16:08→19:57)
[2019-08-27] MEDS ORDERED: MONTELUKAST 10 MG TABLET. PO SCH (21:00)
[2019-08-27] MEDS: PROPRANOLOL 10 MG TABLET. PO SCH (21:00)
[2019-08-27] MEDS: APIXABAN 5 MG TABLET. PO SCH (21:06)
[2019-08-27 21:15] VITALS: BP 121/73
[2019-08-27 23:47] VITALS: BP 134/73
--- NOTE | 2019-08-28 02:28 | EKG ---
[address] [address] Test Date: 2019-08-27 Test Time: 11:51:47 Pat Name: ASHWINI MASON Department: Room: Gender: F [employer]: : 1970 Requested By: AMMY MARINELLI Order Number: [id number] Reading MD: Measurements Intervals [place] Rate: 59 P: 54 GA: 186 QRS: 0 QRSD: 84 T: 28 QT: 414 QTc: 414 Interpretive Statements SINUS RHYTHM LEFTWARD AXIS QRS(T) CONTOUR ABNORMALITY CONSIDER ANTEROSEPTAL MYOCARDIAL DAMAGE POSSIBLY ABNORMAL ECG RI6.01 No previous ECG available for comparison
[2019-08-28] MEDS: MORPHINE SULFATE 2 MG/ML DISP.SYRIN. IV PRN ×2 (04:22→09:47)
[2019-08-28 05:09] VITALS: BP 103/68
[2019-08-28] MEDS: APIXABAN 5 MG TABLET. PO SCH (08:04)
[2019-08-28] MEDS: PROPRANOLOL 10 MG TABLET. PO SCH (08:05)
[2019-08-28] MEDS ORDERED: TRIAMTERENE/HCTZ 37.5/25MG TABLET. PO SCH (09:00)
[2019-08-28] MEDS ORDERED: PANTOPRAZOLE 40 MG TABLET. PO SCH ×2 (09:00→13:15)
[2019-08-28] MEDS ORDERED: NON FORMULARY ITEM (Biotin 1,000 MCG) PO SCH (09:00)
[2019-08-28] MEDS ORDERED: CYANOCOBALAMIN (VITAMIN B-12) 1,000 MCG TABLET. PO SCH (09:00)
[2019-08-28] MEDS ORDERED: OMEGA-3 FATTY ACIDS/FISH OIL 1,000 MG CAPSULE. PO SCH (09:00)
[2019-08-28] MEDS ORDERED: MULTIVITAMIN with MINERAL TABLET. PO SCH (09:00)
[2019-08-28 10:47] VITALS: BP 120/80
[2019-08-28 11:10] VITALS: BP 128/82
--- NOTE | 2019-08-28 11:15 | NUR ---
Patient complained of chest pain, SOB, and chest pressure at 1110AM. Dr. Colon notified via telephone and new orders for stat EKG, stat Troponin, 1 mg of morphine now IV, and Nitro received.
[2019-08-28] MEDS: NITROGLYCERIN SUBLINGUAL 0.4 MG BOTTLE OF 25. SL PRN ×2 (11:26→12:02)
[2019-08-28 11:30] VITALS: BP 124/81
[2019-08-28] MEDS ORDERED: MORPHINE SULFATE 2 MG/ML DISP.SYRIN. IV PRN (11:30)
[2019-08-28] MEDS ORDERED: MORPHINE SULFATE 2 MG/ML DISP.SYRIN. IM ONE (11:30)
[2019-08-28 12:06] VITALS: BP 118/76
[2019-08-28] MEDS ORDERED: MAALOX:LIDO:APAP 6:2:1 ORAL SUSPENSION 180 ML BOTTLE. PO PRN (13:15)
[2019-08-28] MEDS ORDERED: MECLIZINE 12.5 MG TABLET. PO PRN (13:15)
--- NOTE | 2019-08-28 14:49 | EKG ---
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
[2019-08-28 15:43] VITALS: BP 121/78
--- NOTE | 2019-08-28 15:49 | PDOC2 ---
CONSULT Date of Admission DATE: 08/28/19 TIME: 15:49 Reason for Consult: Chest pain Referring Physician: Dr. Colon Chief Complaint Chest pain Source: Chart review, Patient Problem List Problems Medical Problems: (1) Chest pain Status: Acute History of Present Illness 49 y/o female with history of Ehler-Danlos syndrome and paroxysmal atrial fibrillation previously followed by [facility] presented complaining of retrosternal chest pressure radiating to neck and left arm. She denied any orthopnea/PND, palpitations or syncope. Patient was apparently told she had two silent heart attacks in the past but denied any cardiac cath/stents. Past Medical History Margaret-Danlos syndrome DVT/Pulmonary embolism Paroxysmal atrial fibrillation TIA Anxiety HTN Past Surgical History Hysterectomy Gastric bypass Family History Strongly positive for premature CAD Social History Occasional cigar, denied any drug use Current Medications Current Medications Aspirin (Children'S Aspirin) 324 mg 1X ONCE PO Last administered on 08/27/19at 12:10; Start 08/27/19 at 12:15; Stop 08/27/19 at 12:16; Status DC Morphine Sulfate (Morphine 2mg Syringe) 2 mg PRN Q15MIN PRN IV/SQ PAIN GREATER THAN 3/10 Last administered on 08/27/19at 12:10; Start 08/27/19 at 12:00; Stop 08/27/19 at 13:24; Status DC Sodium Chloride 1,000 ml @ 100 mls/hr Q10H IV Last administered on 08/27/19at 12:00; Start 08/27/19 at 12:00; Stop 08/27/19 at 21:59; Status DC Aspirin (Children'S Aspirin) 81 mg STK-MED ONCE .ROUTE ; Start 08/27/19 at 12:07; Stop 08/27/19 at 12:07; Status DC Ondansetron HCl (Zofran) 4 mg PRN Q4HRS PRN IV NAUSEA/VOMITING; Start 08/27/19 at 13:30; Stop 08/28/19 at 13:29; Status DC Morphine Sulfate (Morphine 2mg Syringe) 2 mg PRN Q2HR PRN IV PAIN Last administered on 08/28/19at 09:47; Start 08/27/19 at 13:30; Stop 08/28/19 at 13:29; Status DC Acetaminophen (Tylenol) 650 mg PRN Q4HRS PRN PO FEVER; Start 08/27/19 at 13:30; Stop 08/28/19 at 13:29; Status DC Nitroglycerin (Nitrostat) 0.4 mg PRN Q5MIN PRN SL CHEST PAIN Last administered on 08/28/19at 12:02; Start 08/27/19 at 13:30; Stop 08/28/19 at 13:29; Status DC Apixaban (Eliquis) 5 mg BID PO Last administered on 08/28/19at 08:04; Start 08/27/19 at 21:00 Cyanocobalamin (Vitamin B-12) 1,000 mcg DAILY PO Last administered on 08/28/19 08:05; Start 08/28/19 at 09:00 Montelukast Sodium (Singulair) 10 mg QHS PO Last administered on 08/27/19at 21:06; Start 08/27/19 at 21:00 Propranolol HCl (Inderal) 10 mg BID PO ; Start 08/27/19 at 21:00 Triamterene/HCTZ (Maxzide 37.5/ 25mg) 1 tab DAILY PO Last administered on 08/28/19at 08:05; Start 08/28/19 at 09:00 Non-Formulary Medication (Biotin ) 1,000 mcg DAILY PO ; Start 08/28/19 at 09:00 ; Status UNV Pantoprazole Sodium (Protonix) 40 mg DAILY PO Last administered on 08/28/19at 08:04; Start 08/28/19 at 09:00 Multivitamins/ Calcium (Thera-M Plus) 1 tab DAILY PO Last administered on 08/28/19at 08:05; Start 08/28/19 at 09:00 Fish Oil (Fish Oil) 1,000 mg DAILY PO Last administered on 08/28/19at 08:04; Start 08/28/19 at 09:00 Morphine Sulfate (Morphine 2mg Syringe) 1 mg 1X ONCE IM ; Start 08/28/19 at 11:30; Stop 08/28/19 at 11:24; Status DC Morphine Sulfate (Morphine 2mg Syringe) 1 mg 1X PRN IV PAIN; Start 08/28/19 at 11:30 Pantoprazole Sodium (Protonix) 40 mg DAILYAC PO ; Start 08/28/19 at 13:15; Status UNV Multi-Ingredient Mouthwash/Gargle (Velvet Glove Oral Susp) 10 ml PRN QID PRN PO MOUTH PAIN Last administered on 08/28/19at 14:34; Start 08/28/19 at 13:15 Meclizine HCl (Antivert) 12.5 mg PRN Q6HRS PRN PO DIZZINESS Last administered on 08/28/19at 14:34; Start 08/28/19 at 13:15 Active Scripts Active Reported Propranolol Hcl 10 Mg Tablet 1 Tab PO BID [place] 3 Fish Oil Softgel ([place]-3 Fatty Acids/Fish Oil) 1 Each Capsule.dr 1 Each PO DAILY Nexium Capsule (Esomeprazole Magnesium) 40 Mg Capsule.dr 1 Cap PO DAILY Montelukast Sodium 10 Mg Tablet 1 Tab PO QHS Triamterene-Hctz 37.5-25 Mg Tb (Triamterene/Hydrochlorothiazid) 1 Each Tablet 1 Tab PO DAILY Eliquis (Apixaban) 5 Mg Tablet 1 Tab PO BID Multivitamins (Multivitamin) 1 Each Tablet 1 Tab PO DAILY Vitamin B-12 (Cyanocobalamin (Vitamin B-12)) 1,000 Mcg Tablet 1 Tab PO DAILY Biotin 800 Mcg Tablet 1,000 Mcg PO DAILY Allergies: Coded Allergies: Sulfa (Sulfonamide Antibiotics) (Verified Allergy, Intermediate, 08/27/19) gabapentin (Unverified Allergy, Unknown, 08/27/19) magnesium (Unverified Allergy, Unknown, 08/27/19) pregabalin (Unverified Allergy, Unknown, 08/27/19) PSYCHOLOGICAL ROS: No: Hallucinations Eyes: No: Loss of vision HEENT: No: Epistaxis Respiratory: No: Hemoptysis, Shortness of breath Cardiovascular: yes: Chest Pain Gastrointestinal: No: Vomiting Genitourinary: No: [place] Neurological: No: Seizures Skin: No: Rash General: Alert, Oriented X3 HEENT: Atraumatic, PERRLA Lungs: Clear to auscultation Heart: Regular rate Abdomen: Soft, No tenderness Extremities: No edema Neuro: Normal speech Psych/Mental Status: Mood NL VITALS Vital Signs Date Time Temp Pulse Resp B/P (MAP) Pulse Ox O2 Delivery O2 Flow Rate FiO2 08/28/19 15:43 98.1 55 20 121/78 (92) 99 Room Air Labs Laboratory Tests Test 08/27/19 12:02 08/27/19 12:15 08/27/19 19:40 08/28/19 11:19 White Blood Count 7.3 x10^3/uL (4.0-11.0) Red Blood Count 4.31 x10^6/uL (3.50-5.40) Hemoglobin 12.6 g/dL (12.0-15.5) Hematocrit 38.3 % (36.0-47.0) Mean Corpuscular Volume 89 fL (79-100) Mean Corpuscular Hemoglobin 29 pg (25-35) Mean Corpuscular Hemoglobin Concent 33 g/dL (31-37) Red Cell Distribution Width 13.6 % (11.5-14.5) Platelet Count 215 x10^3/uL (140-400) Neutrophils (%) (Auto) 50 % (31-73) Lymphocytes (%) (Auto) 42 % (24-48) Monocytes (%) (Auto) 7 % (0-9) Eosinophils (%) (Auto) 1 % (0-3) Basophils (%) (Auto) 1 % (0-3) Neutrophils # (Auto) 3.7 x10^3uL (1.8-7.7) Lymphocytes # (Auto) 3.1 x10^3/uL (1.0-4.8) Monocytes # (Auto) 0.5 x10^3/uL (0.0-1.1) Eosinophils # (Auto) 0.1 x10^3/uL (0.0-0.7) Basophils # (Auto) 0.1 x10^3/uL (0.0-0.2) Prothrombin Time 10.0 SEC (9.4-11.4) Prothromb Time International Ratio 1.0 (0.9-1.1) Activated Partial Thromboplast Time 30 SEC (23-33) D-Dimer (Saira) < 0.19 mg/L (0.00-0.50) Sodium Level 143 mmol/L (136-145) Potassium Level 3.9 mmol/L (3.5-5.1) Chloride Level 103 mmol/L (98-107) Carbon Dioxide Level 31 mmol/L (21-32) Anion Gap 9 (6-14) Blood Urea Nitrogen 20 mg/dL (7-20) Creatinine 1.0 mg/dL (0.6-1.0) Estimated GFR (Cockcroft-Gault) 59.4 BUN/Creatinine Ratio 20 (6-20) Glucose Level 95 mg/dL (70-99) Calcium Level 8.7 mg/dL (8.5-10.1) Magnesium Level 2.2 mg/dL (1.8-2.4) Total Bilirubin 0.3 mg/dL (0.2-1.0) Aspartate Amino Transf (AST/SGOT) 22 U/L (15-37) Alanine Aminotransferase (ALT/SGPT) 28 U/L (14-59) Alkaline Phosphatase 68 U/L (46-116) Troponin I Quantitative < 0.017 ng/mL (0-0.055) < 0.017 ng/mL (0-0.055) < 0.017 ng/mL (0-0.055) Total Protein 7.1 g/dL (6.4-8.2) Albumin 3.8 g/dL (3.4-5.0) Albumin/Globulin Ratio 1.2 (1.0-1.7) Lipase 144 U/L (73-393) Urine Collection Type Unknown Urine Color Yellow Urine Clarity Hazy Urine pH 7.5 Urine Specific [place] 1.015 Urine Protein Neg (NEG-TRACE) Urine Glucose (UA) Neg mg/dL (NEG) Urine Ketones (Stick) Neg mg/dL (NEG) Urine Blood Neg (NEG) Urine Nitrite Neg (NEG) Urine Bilirubin Neg (NEG) Urine Urobilinogen Dipstick 0.2 mg/dL (0.2 mg/dL) Urine Leukocyte Esterase Neg (NEG) Urine RBC 1-2 /HPF (0-2) Urine WBC 1-4 /HPF (0-4) Urine Squamous Epithelial Cells Few /LPF Urine Bacteria 0 /HPF (0-FEW) Urine Opiates Screen Neg (NEG) Urine Methadone Screen Neg (NEG) Urine Barbiturates Neg (NEG) Urine Phencyclidine Screen Neg (NEG) Urine Amphetamine/Methamphetamine Neg (NEG) Urine Benzodiazepines Screen Neg (NEG) Urine Cocaine Screen Neg (NEG) Urine Cannabinoids Screen Neg (NEG) Urine Ethyl Alcohol Neg (NEG) Assessment/Plan 1. Chest pain with typical features. [place] ruled out Patient has strong FH of premature CAD. The option of cardiac cath for definitive evaluation was discussed in detail and she is agreeable. Plan for transfer to [facility] for cath 2. HTN: controlled 3. DVT/PE: on rn long term care anticoagulation Thank you for your consultation KASSANDRA CHAMPION MD Aug 28, 2019 15:49
--- NOTE | 2019-08-28 18:49 | NUR ---
NURSING NOTES: PATIENT TRANSFERRED TO [facility] FOR CARDIAC CATH. ALL PATIENT BELONGING SENT WITH PATIENT. EMS TEMPERATURE LOGGING OPERATOR AT 1820.
--- NOTE | 2019-08-28 22:36 | DS ---
DATE OF DISCHARGE: 08/28/2019 HOSPITAL COURSE: A 49-year-old female came in with chest pain. The patient was initially seen in the office in to the Emergency Room and then admitted for further evaluation of her substernal chest pain, which radiates into the right arm. The patient did have an abnormal EKG. She was seen by Cardiology here in the hospital and felt that the patient required IV catheterization for further evaluation of her chest discomfort. Her labs are basically all stable. Chest x-ray was also within normal limits, but the Cardiology wanted to have a heart catheterization and make further evaluation and clarification of her chest pain. IMPRESSION: Chest pain, rule out myocardial infarction. PLAN: As above. Continue to monitor the patient accordingly, make further evaluation on her, and she will be transferred to [facility]. FELIX MICHAUD MD DR: BOB/jaret JOB#: [id number] / [id number]
== END 2019-08-28 18:51 | disposition short-term general hospital (02) ==
LOC: ER 11:45 → 1 SOUTH 13:15
PROVIDERS: ADMIT Family Medicine; ATTEND Family Medicine
DX: R07.89 Other chest pain (principal); J45.909 Unspecified asthma, uncomplicated; G47.30 Sleep apnea, unspecified; Z86.711 Personal history of pulmonary embolism; Z98.890 Other specified postprocedural states; Z87.891 Personal history of nicotine dependence; Z98.84 Bariatric surgery status; Z90.710 Acquired absence of both cervix and uterus
CPT/HCPCS: 36415; 71045; 80053; 80307; 81001; 83690; 83735; 84484; 85025; 85379; 85610; 85730; 93005; 96374; 96376; 99284; G0378; J2270; J8597; G0379; J7030

== ENCOUNTER → 2020-03-25 | Outpatient (CLI) | payer OTHER ==
[~2020-03-25] MED LIST changes: +APIX5TAB3 PO; -CETI10TA22 PO; +CETI10TA24 PO; +ESOM40CA PO; +MONT10TA11 PO; +MULT-445 PO; -MULT1TAB52 PO; +OMEG1CAP38 PO; +PROP10TA PO; +TRIA1TAB3 PO
--- NOTE | 2020-03-25 16:49 | RAD ---
US PELVIS W/TV History: Pelvic pain and bloating Comparison: None. Findings: Multiple transabdominal sonographic images of the pelvis are submitted. Pelvic structures are poorly seen. Transvaginal ultrasound: Multiple transvaginal sonographic images of the pelvis are submitted. Left ovary measured 1.5 x 1.4 x 1.1 cm, normal low resistance vascularity. Right ovary measured 2.1 x 1.1 x 1 cm, normal low resistance vascularity. There has been hysterectomy. No free fluid is demonstrated in the pelvis. Impression: 1. No abnormality is demonstrated of either ovary. There has been hysterectomy. Electronically signed by: Jose Donaldson MD (03/25/2020 4:46 PM) [id number]
== END ==
LOC: US 15:18
PROVIDERS: ATTEND Family Medicine
DX: R10.30 Lower abdominal pain, unspecified (principal); Z90.710 Acquired absence of both cervix and uterus
CPT/HCPCS: 76830; 76856

== ENCOUNTER 2020-04-21 12:20 | Emergency (ER) | payer OTHER ==
[~2020-04-21] VITALS: Ht 180.3 cm; Wt 102.3 kg
--- NOTE | 2020-04-21 12:29 | PHYS DOC ---
Past History Past Medical History: Anxiety, Arrhythmia, CAD, Depression, DVT, Hypertension, TIA, Other Additional Past Medical Histor: PE, Hypergycemia, Margaret-Danlos syndrome (JOSHUA CUEVAS DO) Past Surgical History: Hysterectomy, Other Additional Past Surgical Histo: Gastric Bypass, (JOSHUA CUEVAS DO) Smoking: Non-smoker, Cigar Alcohol Use: Rarely Drug Use: Marijuana (JOSHUA CUEVAS DO) General Adult EDM: Chief Complaint: PSYCH EVALUATION HPI: HPI: 50-year-old female presents with report of suicidal ideation that has been ongoing for the past several weeks which is gotten worse over the past few days. Patient reportedly stopped taking her prescribed antidepressant last week. Per friend patient has had "mood swings "over the past weekend where she would be extremely happy and then suddenly become very sad. Patient denies taking any medication or illicit substance to try to harm herself. Patient has reported a suicidal plan and overdosing on medication. Patient reports prior history of overdose from suicidal attempt in which patient was hospitalized at [facility] in the ICU and then treated on psychiatric floor. Patient reports she is currently going through menopause and cannot take any hormone replacement secondary to history of DVT/PE. Patient also reports acute on chronic headache with associated nausea. Patient reports negative COVID testing on Saturday in PCP office. (JOSHUA CUEVAS DO) Review of Systems: Review of Systems: Constitutional: Denies fever or chills Eyes: Denies redness or eye pain HENT: Denies nasal congestion or sore throat Respiratory: Denies cough or shortness of breath Cardiovascular: Denies chest pain or palpitations GI: Denies abdominal pain or vomiting; reports nausea : Denies dysuria or hematuria Musculoskeletal: Denies back pain or joint pain Integument: Denies rash or skin lesions Neurologic: Reports headache; denies focal weakness or sensory changes Complete systems were reviewed and found to be within normal limits, except as documented in this note. (JOSHUA CUEVAS DO) Allergies: Allergies: Allergies Coded Allergies Type Severity Reaction Last Updated Verified Sulfa (Sulfonamide Antibiotics) Allergy Intermediate 08/27/19 Yes gabapentin Allergy Unknown 08/27/19 No magnesium Allergy Unknown 08/27/19 No pregabalin Allergy Unknown 08/27/19 No (JOSHUA CUEVAS DO) Physical Exam: PE: Constitutional: Well developed, well nourished, no acute distress, non-toxic appearance HENT: Normocephalic, atraumatic Eyes: PERRL, EOMI, conjunctiva normal, no discharge Neck: Normal range of motion, no tenderness, supple, no meningeal signs Lungs & Thorax: No respiratory distress, equal chest rise and fall Abdomen: Soft, no tenderness, no guarding/rebound tenderness/distention Skin: Warm, dry, no erythema, no rash Extremities: No tenderness, ROM intact, no edema Neurologic: Alert and oriented X 3, normal motor function, normal sensory function, no focal deficits noted Psychologic: Affect flat/depressed, judgment normal, reports suicidal ideation with plan to overdose on prescription medications (JOSHUA CUEVAS DO) EKG: EKG: [] (JOSHUA CUEVAS DO) Radiology/Procedures: Radiology/Procedures: [] (JOSHUA CUEVAS DO) Course & Med Decision Making: Course & Med Decision Making Pertinent Lab studies reviewed. (See chart for details) Patient presents with report of suicidal ideation with plan to overdose on medication. Patient also complains of headache. Patient neurologically intact. Patient does not appear depressed. Suicide precautions in place. Labs obtained and posted to chart. Patient medically cleared for tele-psych evaluation. Tele-psych recommends inpatient psychiatric services. Also recommends Ativan PRN. Ativan provided. Awaiting accepting facility and physician for inpatient psychiatric admission. Discussed case with multiple psychiatric facilities regarding. Some facilities require repeat COVID testing despite recent negative result from 04/15/20. Discussed findings and plan with patient, who acknowledges understanding and agreement. 1725- Patient became more anxious because her was not allowed back to be with her. Advised patient that due to COVID risks that family is not allowed back at this time. Patient reports "I'm going to flip with f... out". Geodon 10mg IM therefore provided. 0225- Patient resting calmly throughout the night. Patient did awake earlier in evening and appears much more calmed than prior. 0600- Sign out will be given to Dr. Mejia for further evaluation and final disposition. Still awaiting accepting facility and physician. (JOSHUA CUEVAS DO) Course & Med Decision Making Pt. watching TV as shift change. 1800. Still awaiting for placement. See Notes by Dr. Cuevas and Dr. Crisostomo. COVID Test still pending. Still attempting placement . Pt. only request is something to drink and some tylenol for mild headache. Pt. accepted at [facility]- Dr. Garcia 1910 hrs. (MUMTAZ DORAN MD) Bertram Disclaimer: Bertram Disclaimer: This electronic medical record was generated, in whole or in part, using a voice recognition dictation system. (JOSHUA CUEVAS DO) Departure Departure: Impression: Primary Impression: Suicidal ideation Additional Impression: Headache Qualified Codes: R51 - Headache Disposition: 65 XFER TO PSYCH HOSP/UNIT Condition: STABLE Referrals: FELIX MICHAUD MD (PCP) Justification of Admission: Justification of Admission: Justification of Admission Dx: N/A (JOSHUA CUEVAS DO) Justification of Admission Dx: N/A (MUMTAZ DORAN MD) Bertram Disclaimer This chart was dictated in whole or in part using Voice Recognition software in a busy, high-work load, and often noisy Emergency Department environment. It may contain unintended and wholly unrecognized errors or omissions. (MUMTAZ DORAN MD) JOSHUA CUEVAS DO Apr 21, 2020 12:29 MUMTAZ DORAN MD Apr 22, 2020 19:02
[2020-04-21] MEDS ORDERED: ONDANSETRON ODT 4 MG TAB.RAPDIS PO ONE (13:15)
[2020-04-21] MEDS ORDERED: KETOROLAC 30 MG/ML VIAL. IM ONE (13:15)
[2020-04-21 13:18] LABS: BASO # 0.1 x10^3/uL (0.0-0.2); BASO % 1 % (0-3); EOS # 0.1 x10^3/uL (0.0-0.7); EOS % 1 % (0-3); HEMATOCRIT 39.5 % (36.0-47.0); HEMOGLOBIN 13.3 g/dL (12.0-15.5); LYMPH # 2.9 x10^3/uL (1.0-4.8); LYMPH % 46 % (24-48); MEAN CORPUSCULAR HEMOGLOBIN 30 pg (25-35); MEAN CORPUSCULAR HGB CONC 34 g/dL (31-37); MEAN CORPUSCULAR VOLUME 89 fL (79-100); MONO # 0.5 x10^3/uL (0.0-1.1); MONO % 8 % (0-9); NEUT # 2.8 x10^3uL (1.8-7.7); NEUT % 45 % (31-73); PLATELET COUNT 207 x10^3/uL (140-400); RED BLOOD COUNT 4.42 x10^6/uL (3.50-5.40); RED CELL DISTRIBUTION WIDTH 13.3 % (11.5-14.5); WHITE BLOOD COUNT 6.2 x10^3/uL (4.0-11.0)
[2020-04-21 13:24] LABS: BARBITURATES NEG (NEG); BENZODIAZEPINES NEG (NEG); CANNABINOIDS NEG (NEG); COCAINE NEG (NEG); METHADONE NEG (NEG); OPIATES NEG (NEG); PHENCYCLIDINE NEG (NEG)
[2020-04-21 13:26] LABS: AMPHETAMINE/METHAMPHETAMINE NEG (NEG)
[2020-04-21 13:29] LABS: CALCIUM 9.2 mg/dL (8.5-10.1); CREATININE 1.1 mg/dL (0.6-1.0); POTASSIUM 3.8 mmol/L (3.5-5.1)
[2020-04-21 13:33] LABS: ACETAMIN < 2.0 mcg/mL (10-30); SALIC < 2.8 mg/dL (2.8-20.0)
[2020-04-21 13:34] LABS: ETHANOL < 10 mg/dL (0-10)
[2020-04-21 13:35] LABS: ALBUMIN 3.9 g/dL (3.4-5.0); MAGNESIUM 2.2 mg/dL (1.8-2.4); TOTAL BILIRUBIN 0.5 mg/dL (0.2-1.0); TOTAL PROTEIN 7.7 g/dL (6.4-8.2)
[2020-04-21 13:49] LABS: BILIRUBIN,URINE NEG (NEG); CLARITY,URINE CLEAR; COLOR,URINE YELLOW; GLUCOSE,URINE NEG (NEG); NITRITE,URINE NEG (NEG); RBC,URINE 0 /HPF (0-2); UROBILINOGEN,URINE 0.2 mg/dL (0.2 mg/dL)
[2020-04-21 13:50] LABS: BACTERIA,URINE 0 /HPF (0-FEW); SQUAMOUS EPITHELIAL CELL,UR OCC /LPF; WBC,URINE RARE /HPF (0-4)
[2020-04-21] MEDS ORDERED: LORazepam 1 MG TABLET PO ONE (14:45)
[2020-04-21 16:16] LABS: U PREG PATIENT NEGATIVE (NEG)
[2020-04-21] MEDS ORDERED: ZIPRASIDONE IM 20 MG VIAL. IM ONE (17:30)
[2020-04-22] MEDS ORDERED: PROPRANOLOL 10 MG TABLET. PO ONE (06:00)
[2020-04-22] MEDS ORDERED: TRIAMTERENE/HCTZ 37.5/25MG TABLET. PO ONE (06:00)
[2020-04-22] MEDS ORDERED: APIXABAN 2.5 MG TABLET PO ONE (06:00)
[2020-04-22] MEDS ORDERED: ONDANSETRON PF 4 MG/2 ML VIAL. IVP ONE (11:20)
[2020-04-22] MEDS ORDERED: ONDANSETRON ODT 4 MG TAB.RAPDIS PO ONE (11:45)
[2020-04-22] MEDS ORDERED: LORazepam 1 MG TABLET PO ONE (11:55)
[2020-04-22 18:39] VITALS: BP 114/71
[2020-04-22] MEDS ORDERED: ACETAMINOPHEN 500 MG TABLET PO ONE (19:15)
== END 2020-04-22 19:40 ==
LOC: ER 12:20
DX: R45.851 Suicidal ideations (principal); R51 Headache; F41.9 Anxiety disorder, unspecified; I25.10 Atherosclerotic heart disease of native coronary artery without angina pectoris; F32.9 Major depressive disorder, single episode, unspecified; I10 Essential (primary) hypertension; Q79.60 Ehlers-Danlos syndrome, unspecified; Z86.718 Personal history of other venous thrombosis and embolism; Z86.73 Personal history of transient ischemic attack (TIA), and cerebral infarction without residual deficits; Z91.5 Personal history of self-harm; Z98.84 Bariatric surgery status; Z88.2 Allergy status to sulfonamides; Z88.8 Allergy status to other drugs, medicaments and biological substances
CPT/HCPCS: 36415; 80053; 80307; 80329; 81001; 81025; 83735; 85025; 85610; 85730; 96372; 99285; G0480; J1885; J3486; Q0162; U0003-CS